=== PATIENT | male | born 1990 | race Caucasian/White ===

== ENCOUNTER 2019-01-09 14:21 | Emergency (ER) | payer SELFPAY ==
[~2019-01-09] VITALS: Ht 185.4 cm; Wt 78.0 kg
--- NOTE | 2019-01-09 14:28 | NUR ---
28 YR OLD MALE ARRIVED VIA EMS, PER REPORT PT FOUND AT HOME, CPR WAS IN PROCESS UPON EMS ARRIVAL BY A FRIEND, PT FOUND TO HAVE PULSES AND AGONAL RESP. PT WAS GIVEN NARCAN 0.5 IN THE FIELD, PT BECAME AROUSABLE TO NAME. PT ARRIVED WITH VANESSA IVS IN PLACE. Addendum: 01/09/19 at 1439 by ROBERT PTS GIRLFRIEND STATES "FOUND HIM IN THE BR, HE WAS SWEATING, I GAVE HIME BREATHS," PT ARRIVED COOL TO TOUCH, DAMP SKIN, "WAS PUT IN THE SHOWER"
--- NOTE | 2019-01-09 14:35 | NUR ---
ANNA HUDDLESTON AT BEDSIDE TO PO PT
--- NOTE | 2019-01-09 14:38 | NUR ---
PT AROUSES TO NAME, WHEN QUESTIONED BY ANNA HUDDLESTON, ABOUT DRUG USE, PT STATES "EVERY THING, HEROIN, METH, OXYCODONE.
--- NOTE | 2019-01-09 14:51 | NUR ---
ASKED PT IF HE WAS TRYING TO HURT HIMSELF TODAY, REPLIES "NO" PER GIRLFRIEND GENARO'S REPORT APPROX 2 WEEKS AGO, PT HAD LOCKED HIMSELF IN A CLOSET AND WAS SMOKING ALOT, IN AN ATTEMPT TO HARM HIMSELF. PT VERY DROWSY, AROUSES TO NAME. ST PER MONITOR. URINAL AT BEDSIDE.
[2019-01-09] MEDS ORDERED: SODIUM CHLORIDE FLUSH 10ML SYR IVF ONE (15:00)
--- NOTE | 2019-01-09 15:04 | NUR ---
2 OF PTS CHAIN NECKLACES WERE PLACED IN PT PANTS POCKETS. PTS ROBERTO JASON LEFT, PHONE NUMBER [phone]. REPORT TO ADAM DAVIS.
--- NOTE | 2019-01-09 15:07 | NUR ---
RECEIVED REPORT FROM BEV DAVIS
[2019-01-09 15:21] LABS: ALBUMIN 4.2 g/dL (3.4-5.0); ANION GAP 5 mmol/L (5-15); CALCIUM 8.8 mg/dL (8.5-10.1); CHLORIDE 108 mmol/L (98-107); SALICYLATE LEVEL 3.4 mg/dL (2.8-20.0)
[2019-01-09 15:24] LABS: ALANINE AMINOTRANSFERASE 29 U/L (12-78); ALKALINE PHOSPHATASE 59 U/L (45-117); BILIRUBIN,TOTAL 0.6 mg/dL (0.2-1.0); CREATININE 1.07 mg/dL (0.7-1.3); TOTAL PROTEIN 7.6 g/dL (6.4-8.2)
[2019-01-09 15:26] LABS: ACETAMINOPHEN < 2 mcg/mL (10-30)
--- NOTE | 2019-01-09 15:40 | NUR ---
PT AWAKENS WITH VERBAL STIMULI
--- NOTE | 2019-01-09 17:08 | NUR ---
PT SLEEPING AT THIS TIME.
--- NOTE | 2019-01-09 17:55 | NUR ---
PT SLEEPING AT THIS TIME.
--- NOTE | 2019-01-09 18:23 | NUR ---
PT RESTING IN BED. AWAKENS WITH VOICE. PT ENCOURAGED TO USE THE URINAL.
--- NOTE | 2019-01-09 18:34 | NUR ---
pt denies suicide or homicide. pt more awake. pt given water.
--- NOTE | 2019-01-09 18:51 | NUR ---
RECEIVED REPORT FROM RYAN MEDINA TO ASSUME PT. CARE AT THIS TIME.
--- NOTE | 2019-01-09 18:52 | NUR ---
ALL MONITORS IN PLACE. CALL LIGHT IN REACH. ALL SAFETY MEASURES OBSERVED.
--- NOTE | 2019-01-09 18:52 | NUR ---
report given to soha neal
--- NOTE | 2019-01-09 19:22 | NUR ---
PT. RESTING ON GURNEY WITH EYES CLOSED IN SITTING POSITION. NADN. RESP EVEN, NON-LABORED. VS UPDATED. CALL LIGTH IN REACH. ALL SAFTY MEASURES OBSERVED.
--- NOTE | 2019-01-09 19:38 | NUR ---
PT. AWAKE IN ROOM. KARO CASTILLO IN TO RE-EVAL PT. AND DISCUSS POC. PT. REPORTS "I AM READY TO GO HOME NOW, I FEEL FINE." PT. REPORTS "I ONLY TOOK 1 OXY, HOW COULD I HAVE POSSIBLY OVERDOSED?". PT. DENIES ANY SI/HI. PT. GETTING SELF DRESSED AT THIS TIME. WILL ENSURE PT. ABLE TO AMBULATE WITH STEADY GAIT. PRIOR TO D/C.
--- NOTE | 2019-01-09 19:48 | NUR ---
PT. ABLE TO AMBULATE WITH STEADY GAIT. NO DISTRESS NOTED. CALLED SO TO COME GET PT. SHE IS ON HER WAY.
--- NOTE | 2019-01-09 19:49 | NUR ---
PIV'S D/C'ED WITH TIPS INTACT.
[2019-01-09 20:06] VITALS: BP 115/73
== END 2019-01-09 20:33 | disposition home or self-care (01) ==
LOC: ED 20:27
DX: T43.621A Poisoning by amphetamines, accidental (unintentional), initial encounter (principal); T40.1X1A Poisoning by heroin, accidental (unintentional), initial encounter; T40.2X1A Poisoning by other opioids, accidental (unintentional), initial encounter; F17.210 Nicotine dependence, cigarettes, uncomplicated; Y92.9 Unspecified place or not applicable
CPT/HCPCS: 36415; 71045; 80053; 80307; 80329; 93005; 99284; G0480